=== PATIENT | male | born 1960 | race African-American/Black ===

== ENCOUNTER → 2016-07-24 | Outpatient (CLI) | payer OTHER ==
[~2016-07-24] MED LIST: AMLODIPINE BESYL5 MG PO; BUMEX1 MG PO; COREG PO; CRESTOR PO; FLEXERIL PO; GABAPENTIN300 MG PO; HCTZ PO; HYDROCHLOROTHIA25 MG PO; HYDROCODON-ACE1 EAC4 PO; KETOPROFEN PO; LISINOPRIL PO; LISINOPRIL5 MG PO; LORTAB 10/500 T1 TAB PO; MEVACOR PO; NIACIN PO; NORVASC PO; OXYCODON HCL-1 UDTA1 PO; PRAVASTATIN SOD40 MG PO; PROMETHAZINE12.5 MG PO; RANITIDINE HCL150 M1 PO; VITAMIN D250000 UNIT PO
[2016-07-24 12:44] LABS: HEMATOCRIT 44.5 % (38.0-50.0); HEMOGLOBIN 14.6 gm/dL (13.0-16.0); MEAN CELL VOLUME 92.5 FL (83-96); MEAN CORPUSCULAR HEMOGLOBIN 30.4 PG (28-34); MEAN CORPUSCULAR HGB CONC 32.8 g/dL (30-36); MEAN PLATELET VOLUME 8.1 FL (6.5-11.5); RED BLOOD COUNT 4.81 X10e (3.90-5.60); RED CELL DISTRIBUTION WIDTH 13.8 % (11.0-15.5); WHITE BLOOD COUNT 7.6 X10e3 (4.0-10.5)
[2016-07-24 14:01] LABS: BLOOD UREA NITROGEN 24 mg/dL (9-23); BUN/CREATININE RATIO 17.14; CALCIUM SERUM 9.6 mg/dL (8.4-10.2); CARBON DIOXIDE 26 mmol/L (22-31); CHLORIDE 108 mmol/L (100-111); CREATININE SERUM 1.4 mg/dL (0.6-1.4); GLOM FILT RATE Estimated ABOVE60 mL/min (>60); GLUCOSE FASTING 95 mg/dL (70-110); POTASSIUM 4.3 mmol/L (3.5-5.1); SODIUM 142 mmol/L (135-145)
== END | disposition home or self-care (01) ==
LOC: CLAB 12:10
PROVIDERS: Internal Medicine Cardiovascular Disease
DX: I50.9 Heart failure, unspecified (principal)
CPT/HCPCS: 36415; 80048; 85027

== ENCOUNTER 2016-08-12 06:49 | Inpatient (IN) | payer OTHER ==
--- NOTE | ~2016-08-12 | PN ---
Unit #: [id number] #: [id number] Patient: HIRO MARIE JR [id number] [facility] [address] [place] [address] [id number] I MR#: [id number] NAME: HIRO MARIE JR ROOM: [facility] Age: 56 Sex: M Admission Date: 08/12/2016 : 1960 Attending Physician: Bertha Lambert M.D. Admitting Physician: Bertha Lambert M.D. Primary Care Physician: Primary Care Physician Paige MERCER PROGRESS NOTES DATE 08/22/2016 DISCUSSION Mr. Marie is a 56-year-old male who was seen today and chart was reviewed and case was discussed with the staff. He has been anxious, withdrawn though has not shown any agitation, irritability or behavioral problems and has been cooperative with treatment recommendations and has been taking medications and tolerating them fairly well with no reported side effects. MENTAL STATUS EXAMINATION Middle-aged male who was casually dressed with fair personal hygiene and appears to be in no acute distress or discomfort. He was awake and alert on interaction with intact orientation. His mood was anxious and depressed with congruent affect. His speech is slow and goal-directed. He denies any suicidal or homicidal ideations and also denies any auditory or visual hallucinations. His insight and judgement remains slightly impaired. TREATMENT PLAN 1. Will continue him on his current medications and treatment protocol and will monitor his response to the medications and make further adjustments as needed. 2. Will continue to follow up. Dictated by... Waleska Salgado/wei TD: 08/25/2016 09:08 JOB #: [id number] Unit #: [id number] #: [id number] Patient: HIRO MARIE JR [facility] PROGRESS NOTES Page 1 of 1 X Bertha Lambert MD PROGRESS NOTE
--- NOTE | ~2016-08-12 | PN ---
Unit #: [id number] #: [id number] Patient: HIRO MARIE JR [id number] [facility] [address] [place] [address] [id number] I MR#: [id number] NAME: HIRO MARIE JR ROOM: P265 Age: 56 Sex: M Admission Date: 08/12/2016 : 1960 Attending Physician: Bertha Lambert M.D. Admitting Physician: Bertha Lambert M.D. Primary Care Physician: Primary Care Physician Paige MERCER PROGRESS NOTES DATE 08/16/2016 DISCUSSION Mr. Marie is a 56-year-old, male who was seen today and chart was reviewed and case was discussed with the staff. He has been anxious, withdrawn though has not shown any agitation, irritability or behavioral problems and has been cooperative with treatment recommendations though still has been exhibiting some persistent depressive symptoms. MENTAL STATUS EXAM Middle-aged male who was casually dressed with a fair personal hygiene appears to be in no acute distress or discomfort. He was awake and alert with (:34) anxious with congruent affect. His speech was slow and restricted in content. His thought processes were disorganized with some looseness of associations. His insight and judgement remains significantly impaired. TREATMENT PLAN 1. We will continue him on his current medications and treatment protocol. We will monitor his response to the medication and make further adjustments as needed. 2. We will continue to follow up. Dictated by... Waleska Salgado/maryjane TD: 08/18/2016 02:42 JOB #: [id number] Unit #: [id number] #: [id number] Patient: HIRO MARIE JR [facility] PROGRESS NOTES Page 1 of 1 X Bertha Lambert MD PROGRESS NOTE
--- NOTE | ~2016-08-12 | PN ---
Unit #: [id number] #: [id number] Patient: HIRO MARIE JR [id number] [facility] [address] [place] [address] [id number] MR#: [id number] NAME: HIRO MARIE JR ROOM: [facility] Age: 56 Sex: M Admission Date: 08/12/2016 : 1960 Attending Physician: Bertha Lambert M.D. Admitting Physician: Bertha Lambert M.D. Primary Care Physician: Primary Care Physician Paige MERCER PROGRESS NOTES DATE 08/21/2016 DISCUSSION Mr. Marie is a 56-year-old, male who was seen today and chart was reviewed and case was discussed with the staff. He remains anxious, withdrawn, depressed and rather seclusive to himself. Meanwhile, he has been taking the medications and tolerating them fairly well with no reported side effects. MENTAL STATUS EXAM Middle-aged male who was casually dressed with fair personal hygiene, appears to be in no acute distress or discomfort. He was awake and alert on interaction with intact orientation. His mood was anxious and depressed with congruent affect. His speech was slow and goal directed. He denies any suicidal or homicidal ideation. Also, denies any auditory or visual hallucinations. His insight and judgement remains slightly impaired. TREATMENT PLAN 1. We will continue him on his current treatment protocol. We will monitor his response to the medications and make further adjustments as needed. 2. We will continue to follow up. Dictated by... Waleska Salgado/maryjane TD: 08/24/2016 22:51 JOB #: [id number] Unit #: [id number] #: [id number] Patient: HIRO MARIE JR [facility] PROGRESS NOTES Page 1 of 1 X Bertha Lambert MD PROGRESS NOTE
--- NOTE | ~2016-08-12 | PN ---
Unit #: [id number] #: [id number] Patient: HIRO MARIE JR [id number] [facility] [address] [place] [address] [id number] I MR#: [id number] NAME: HIRO MARIE JR ROOM: [facility] Age: 56 Sex: M Admission Date: 08/12/2016 : 1960 Attending Physician: Bertha Lambert M.D. Admitting Physician: Bertha Lambert M.D. Primary Care Physician: Primary Care Physician Paige MERCER PROGRESS NOTES DATE 08/15/2016 DISCUSSION Mr. Marie is a 56-year-old male who was seen today and chart was reviewed and case was discussed with the staff. He has been anxious, withdrawn though has not shown any agitation, irritability and has been cooperative with treatment recommendations and has been taking medications and tolerating them fairly well with no reported side effects. MENTAL STATUS EXAMINATION Middle-aged male who was casually dressed with fair personal hygiene and appears to be in no acute distress or discomfort. He was awake and alert with impaired attention and concentration. His mood was anxious with congruent affect. His speech is slow and restricted in content. His thought processes were disorganized with some looseness of associations. Her insight and judgement remain slightly impaired. TREATMENT PLAN 1. Will continue on his current medications and treatment protocol. Will monitor his response to the medications and make further adjustments as needed. 2. Will continue to follow up. Dictated by... Waleska Salgado/wei TD: 08/15/2016 23:19 JOB #: [id number] Unit #: [id number] #: [id number] Patient: HIRO MARIE JR [facility] PROGRESS NOTES Page 1 of 1 X Bertha Lambert MD PROGRESS NOTE
--- NOTE | ~2016-08-12 | PN ---
Unit #: [id number] #: [id number] Patient: HIRO MARIE JR [id number] [facility] [address] [place] [address] [id number] I MR#: [id number] NAME: HIRO MARIE JR ROOM: [facility] Age: 56 Sex: M Admission Date: 08/12/2016 : 1960 Attending Physician: Bertha Lambert M.D. Admitting Physician: Bertha Lambert M.D. Primary Care Physician: Primary Care Physician Paige MERCER PROGRESS NOTES DATE 08/18/2016 DISCUSSION Mr. Marie is a 56-year-old male who was seen today and chart was reviewed and case was discussed with the staff. He has been anxious, withdrawn, depressed and rather seclusive to himself. Meanwhile, he has been cooperative with treatment recommendations and has been taking medications and tolerating them fairly well. MENTAL STATUS EXAMINATION Middle-aged male who was casually dressed with fair personal hygiene and appears to be in no acute distress or discomfort. He was awake and alert on interaction with intact orientation. His mood was anxious and depressed with congruent affect. His speech is slow and goal-directed. He denies any suicidal or homicidal ideation. His insight and judgement remains slightly impaired. TREATMENT PLAN 1. Will continue his current medications and treatment. his response to the medications and make further adjustments as needed. 2. Will continue to follow up. Dictated by... Waleska Salgado/wei TD: 08/19/2016 22:39 JOB #: [id number] Unit #: [id number] #: [id number] Patient: HIRO MARIE JR [facility] PROGRESS NOTES Page 1 of 1 X Bertha Lambert MD X PROGRESS NOTE
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
--- NOTE | ~2016-08-12 | PA ---
Unit #: [id number] #: [id number] Patient: HIRO MARIE JR [id number] [facility] [address] [place] [address] [id number] I MR#: [id number] NAME: HIRO MARIE JR ROOM: P265 Age: 56 Sex: M Admission Date: 08/12/2016 : 1960 Date of Assessment: Attending Physician: Bertha Lambert M.D. Admitting Physician: Bertha Lambert M.D. Primary Care Physician: Primary Care Physician No PSYCHIATRIC ASSESSMENT DATE OF SERVICE 08/12/2016. IDENTIFYING DATA Mr. Marie is a 56-year-old male, who is a resident of [place], [place], and was self-referred to the hospital on a voluntary basis. CHIEF COMPLAINT "I'm not feeling safe, I'm having thoughts of hurting myself." HISTORY OF PRESENT ILLNESS Mr. Marie is a 56-year-old male with a new history of mood disorder, who was self-referred to the hospital reporting increasing depression and suicidal ideation, that he has been living in a boarding house that has lots of drug dealing going on around it and the patient stated he left the home due to the increase of negative behavior going on and reports that he has been decompensating and has not been eating and sleeping good and has lost weight and reports feelings of hopelessness and helplessness, poor social support system, anhedonia, and suicidal ideations with intent and plan and was seen to be a significant danger to self and others and as such, recommendation for inpatient level of care was made and the patient was transferred to us. SUBSTANCE ABUSE HISTORY The patient reports history of cannabis and cocaine abuse in the distant past, but denies any current drug abuse with the exception of cocaine which he keeps on using it by snorting and reports his last use was yesterday. However, it appears that he had a rough day yesterday. He stated that he was clean and then he ended up using cannabis and cocaine yesterday. PAST PSYCHIATRIC HISTORY The patient has had history of psychiatric treatment at [facility] in the past and has been diagnosed and treated for substance abuse and mood disorder, though currently he is not active in any treatment program, is not seeing a psychiatrist, and is not taking any psychotropic medications. PAST MEDICAL HISTORY Hypertension, chronic pain, obesity, diabetes mellitus. ALLERGIES Unit #: [id number] #: [id number] Patient: HIRO MARIE JR No known medication allergies. PERSONAL AND SOCIAL HISTORY A 56-year-old male, who reports that he is , single, disabled, unemployed, and describes himself to be homeless as he reports that he has been living in a boarding house, but did not like the environment there and now does not have any stable place to go. MENTAL STATUS EXAMINATION Middle-aged male who was casually dressed with fair personal hygiene, appears to be in no acute distress or discomfort. He was awake and alert on interaction with intact orientation to time, place, and person. His mood was anxious and depressed with a congruent affect. His speech was slow and restricted in content. His thought processes were disorganized with some looseness of associations and suicidal ideations. His insight and judgment remain significantly impaired. DIAGNOSTIC IMPRESSION Psychiatric: Major depressive disorder, recurrent, moderate, without psychotic features; cocaine dependence, moderate. Medical: Hypertension, chronic pain, obesity, diabetes mellitus. Stressors: Moderate psychosocial stressors. TREATMENT PLAN 1. The patient has presented with history of mood disorder and substance abuse and has been decompensating and will need inpatient hospitalization for safety and stabilization. We will start him back on his home medications. We will adjust the medications and monitor response. 2. Supportive therapy was provided to the patient. ESTIMATED LENGTH OF STAY 5 to 7 days. ABILITY TO HELP SELF Limited. WILLINGNESS TO HELP SELF The patient appears to be willing to help self. STRENGTHS 1. Communicative. 2. Cooperative. PROBLEMS 1. Chronic dysphoric symptoms. 2. Poor social support system. DISCHARGE CRITERIA This will be contingent upon the patient's ability to show resolution of his depression and anxiety and his ability to stay safe to himself, particularly after discharge from the hospital. Dictated by... Bertha Lambert M.D. IAA/modl Unit #: [id number] #: [id number] Patient: HIRO MARIE JR TD: 08/13/2016 07:40 JOB #: [id number] PSYCHIATRIC ASSESSMENT Page 1 of 1 X Bertha Lambert MD PSYCHIATRIC ASSESSMENT
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
--- NOTE | ~2016-08-12 | PN ---
Unit #: [id number] #: [id number] Patient: HIRO MARIE JR [id number] [facility] [address] [place] [address] [id number] MR#: [id number] NAME: HIRO MARIE JR ROOM: P265 Age: 56 Sex: M Admission Date: 08/12/2016 : 1960 Attending Physician: Bertha Lambert M.D. Admitting Physician: Bertha Lambert M.D. Primary Care Physician: Paige Primary Care Physician [facility] PROGRESS NOTES DATE August 20, 2016 DISCUSSION Mr. Marie is a 56-year-old, -[place] male who was seen today and chart was reviewed. His case was discussed with the staff. He has been anxious, withdrawn, depressed, and rather seclusive to himself. Meanwhile, he has been voicing feelings of hopelessness, helpless, and suicidal thoughts. MENTAL STATUS EXAMINATION Middle age, -[place] male who was casually dressed with a fair personal hygiene and appears to be in no acute distress or discomfort. He was awake and alert with impaired attention and concentration. His mood is anxious and depressed with a congruent affect. Speech is slow and restricted in content. Thought processes are disorganized with some looseness of association. His insight and judgement remain significantly impaired. TREATMENT PLAN 1. We will continue on his current medications and treatment protocol. Will monitor his response to the medications and make further adjustments as needed. 2. We will continue to follow up. Dictated by... Waleska Salgado/juice TD: 08/22/2016 09:18 JOB #: [id number] Unit #: [id number] #: [id number] Patient: HIRO MARIE JR [facility] PROGRESS NOTES Page 1 of 1 X Bertha Lambert MD X PROGRESS NOTE
--- NOTE | ~2016-08-12 | A ---
[facility] Nutrition Therapy DATE: 08/22/16 Patient: HIRO BOSS JR Physician: AFAIRF Address: [address] Room/Bed: [address], Zip: [place] [address] Admit Date: 08/12/16 Date of : 58 Height: 6 2 Weight: 372 [phone] NUTRITIONAL ASSESSMENT: REASON: LOS Admitting Dx: 56 y/o male admitted with depression and SI, vague HI PMH: Morbid obesity, HTN, DM, HLD, opioid abuse, marijuana and cocaine use Anthropometrics: Ht: 74", Wt: 373 lbs, BMI: 47 (Stage III obese), past weights: 257-315 lbs Labs: WNL, no glucose POC/A1C/lipid panel Meds: Lipitor, Bumetanide, Entresto, Milk of Mg, Mag-al Assessment: Chart reviewed, events noted. H&P and progress notes reviewed, see admitting dx and PMH. Patient is Stage III obese, on regular diet, has hx of DM but glucose was WNL on admission, no A1C lab drawn, no Accucheks. Although the patient reported a poor appetite and general weight loss (amount/time frame not specified) in needs assessment, his past weights actually reflect a weight gain and is he morbidly obese. Appetite has been consistently good since admission and he is receiving large portion entree with lunch/dinner, which he is not appropriate for based on his BMI, however I will not change since he has been receiving larger portions since admission. He is on disability and has been living at a boarding house. See RD recs below. Dx: Stage III obese r/t diet/lifestyle/PMH AEB BMI 47. Intervention: None at this time Monitoring, Evaluation and Goals: Gradual weight loss towards a healthy BMI range Recommendations: 1. Consider changing diet to healthy heart due to PMH and to promote a gradual weight gain towards a healthy BMI range. 2. Suggest checking A1C lab and lipid panel due to PMH. If A1C is elevated suggest adding consistent carb restriction. 3. Promote weight loss. [facility] Nutrition Therapy DATE: 08/22/16 Patient: HIRO BOSS JR Physician: AFAIRF Address: [address] Room/Bed: [facility], Zip: [place] [address] Admit Date: 08/12/16 Date of : 58 Height: 6 2 Weight: 372 [phone] 4. Please consult RD with any further nutritional needs. Not at nutritional risk Respectfully, Bettie Kruse RD, LD [facility] cc: client file
--- NOTE | ~2016-08-12 | PN ---
Unit #: [id number] #: [id number] Patient: HIRO MARIE JR [id number] [facility] [address] [place] [address] [id number] MR#: [id number] NAME: HIRO MARIE JR ROOM: [facility] Age: 56 Sex: M Admission Date: 08/12/2016 : 1960 Attending Physician: Bertha Lambert M.D. Admitting Physician: Bertha Lambert M.D. Primary Care Physician: Primary Care Physician Paige MERCER PROGRESS NOTES DATE OF SERVICE 08/19/2016 DISCUSSION Mr. Marie is a 56-year-old male who was seen today. Chart was reviewed and case was discussed with the staff. He has been anxious, withdrawn, and rather seclusive to himself. Meanwhile, he has been cooperative with treatment recommendations and has been taking the medications and tolerating them fairly well with no reported side effects. MENTAL STATUS EXAMINATION Middle-aged male who is casually dressed with fair personal hygiene, appears to be in no acute distress or discomfort. He was awake and alert on interaction with intact orientation. His mood is anxious with congruent affect. He reports having suicidal ideations as well as vague homicidal ideations. His insight and judgment remain slightly impaired. TREATMENT PLAN 1. We will continue him on his current medications and treatment protocol. We will monitor his response to the medications and make further adjustments as needed. 2. We will continue to follow up. Dictated by... Bertha Lambert M.D. IAA/gildag TD: 08/20/2016 14:24 JOB #: [id number] Unit #: [id number] #: [id number] Patient: HIRO MARIE JR [facility] PROGRESS NOTES Page 1 of 1 X Bertha Lambert MD X PROGRESS NOTE
--- NOTE | ~2016-08-12 | CO ---
Unit #: [id number] #: [id number] Patient: HIRO BOSS JR [id number] [facility] [address] [place] [address] [id number] I MR#: [id number] NAME: HIRO BOSS JR ROOM: [facility] Age: 56 Sex: M Admission Date: 08/12/2016 : 1960 Attending Physician: Bertha Lambert M.D. Consultation Date: 08/12/2016 CONSULTATION REPORT MAKENZIE Garcia is a 56-year-old with history of arrhythmia and defibrillator placement. The patient was seen for his H and P on 08/12/2016. His medical history was outlined as was and his list of medications was included. Please see H and P dated 08/12/2016. Dictated by... Mayra Porter P.A.-C. for Waleska Beltran/korin TD: 08/15/2016 01:49 JOB #: [id number] CONSULTATION REPORT Page 1 of 1 X Mayra Porter CONSULTATION REPORT
--- NOTE | ~2016-08-12 | PN ---
Unit #: [id number] #: [id number] Patient: HIRO KIRAN JR [id number] [facility] [address] [place] [address] [id number] MR#: [id number] NAME: HIRO KIRAN JR ROOM: P265 Age: 56 Sex: M Admission Date: 08/12/2016 : 1960 Attending Physician: Bertha Lambert M.D. Admitting Physician: Bertha Lambert M.D. Primary Care Physician: Primary Care Physician Paige MERCER PROGRESS NOTES DATE 08/23/2016 DISCUSSION Hiro kiran is a 56-year-old male seen on 08/23/2016. The patient is a 56-year-old male reported that he is feeling very sad depressed. The patient was in the hospital bed in room 265. The patient has been compliant with medication. Vital signs 97.7, 108, 141/96. The patient denied any other complaints. Complete review of systems unremarkable. MENTAL STATUS EXAMINATION General appearance, the patient dressed in hospital moderately obese laying in a hospital bed. Attention span and concentration poor. Oriented to time, place and person. Mood and affect sad, depressed. Speech monotone. Thought process slow. Association the patient denied any thoughts of harming self or others but reported having passive SI. Sad depressed. Recent and remote memory poor. Insight and judgement poor. DIAGNOSES Major depressive disorder recurrent severe Cocaine use moderate History of hypertension Chronic pain Obesity Diabetes ASSESSMENT/PLAN Advise to continue with current medication and therapeutic protocol. If needed consider further adjustment of medication. Dictated by... Waleska Gifford/maryjane TD: 08/26/2016 04:25 JOB #: [id number] Unit #: [id number] #: [id number] Patient: HIRO KIRAN JR [facility] PROGRESS NOTES Page 1 of 1 X Edmar Heller MD PROGRESS NOTE
--- NOTE | ~2016-08-12 | HP ---
Unit #: [id number] #: [id number] Patient: HIRO BOSS JR [id number] [facility] [address] [place] [address] [id number] I MR#: [id number] NAME: HIRO BOSS JR ROOM: P265 Age: 56 Sex: M Admission Date: 08/12/2016 : 1960 Attending Physician: Bertha Lambert M.D. Admitting Physician: Bertha Lambert M.D. Primary Care Physician: Primary Care Physician No HISTORY AND PHYSICAL HISTORY OF PRESENT ILLNESS Hiro is a 56 year old admitted to [facility] with depression and verbalizing wanting to hurt himself. PAST MEDICAL HISTORY 1. Morbid obesity. 2. High blood pressure. 3. Diabetes mellitus. 4. Hyperlipidemia. 5. History of arrhythmia. a. Defibrillator. PAST SURGICAL HISTORY As above. ALLERGIES No known drug allergies. SOCIAL HISTORY He denies cigarettes and alcohol. Admits to using marijuana and cocaine and has a history of abusing opioids. FAMILY HISTORY Medically noncontributory. REVIEW OF SYSTEMS CONSTITUTIONAL: No fever or chills. HEENT: Denies any sore throat, ear pain or runny nose. CARDIOVASCULAR: Denies chest pain, irregular heart rhythm or palpitations. CHEST: Denies shortness of breath or cough. No hemoptysis. GASTROINTESTINAL: Denies nausea, vomiting, diarrhea or chronic constipation. ENDOCRINE: Denies history of increased thirst or urination. No recent significant weight loss or gain. GENITOURINARY: Denies dysuria, frequency, or hematuria. SKIN: Denies any rashes. HEMATOLOGIC: Denies history of increased bleeding or bruising. MUSCULOSKELETAL: Denies any hot, swollen joints. No generalized muscle pain. NEUROLOGIC: Denies problems with vision or speech. No frequent, severe headaches. No numbness, tingling or weakness in any extremities. Denies loss of bladder or bowel control. Unit #: [id number] #: [id number] Patient: HIRO BOSS JR CURRENT MEDICATIONS 1. Entresto one b.i.d. 2. Toprol XL 50 mg daily. 3. KCL 10 mEq daily. 4. Bumex 0.5 mg q.a.m. 5. Aspirin 81 mg daily. 6. Lipitor 40 mg q.h.s. 7. Neurontin 300 mg t.i.d. 8. Milk of Magnesia p.r.n. 9. Maalox p.r.n. 10. Tylenol p.r.n. PHYSICAL EXAMINATION GENERAL: Alert, morbidly obese, sitting in a wheelchair, no apparent distress. VITAL SIGNS: Blood pressure 144/92, heart rate 84, respirations 16, temperature 98.6. WEIGHT: 373. HEIGHT: 6 feet 2 inches. SKIN: Warm and dry without rash or lesion. HEENT: Normocephalic. TMs not viewed. Oral and nasal passages clear. Conjunctivae clear. PERRLA. EOMs intact. NECK: Supple without lymphadenopathy or thyromegaly. HEART: Rate and rhythm is regular with a 3/6 systolic murmur. LUNGS: Clear. ABDOMEN: Soft, nontender. : Not done. EXTREMITIES: No evidence of cyanosis or clubbing. He has 2 to 3+ edema up to his knees. Skin is intact. NEUROLOGICAL: Grossly within normal limits. Cranial Nerves: II: Visual lorenz are intact. III, IV AND : Extraocular movements are intact. Pupils are equal, round and reactive to light. V: Facial sensation is grossly normal. VII: Facial movements and expression are normal. VIII: Auditory acuity grossly intact. IX, X: Uvula is midline. Phonation is normal. XI: Patient shrugs shoulders and turns head normally. XII: Tongue protrudes in the midline. Sensory and Motor Function: Sensory and motor sensation is grossly normal. Motor: moves all extremities well. Coordination: Gait is normal. Deep Tendon Reflexes: Intact. IMPRESSION Psychiatric admission. RECOMMENDATIONS PSYCHIATRIC: Per psychiatrist. MEDICAL: 1. See no contraindications to participate in facility's activities. 2. Continue Toprol, KCL, Bumex, aspirin and Lipitor. Will need further consideration on continuing Entresto given his history of diabetes mellitus. MEDICAL PROGNOSIS Good. MEDICAL CONDITION Stable. Unit #: [id number] #: [id number] Patient: HIRO BOSS JR Dictated by... Mayra Porter P.A.-C. for Waleska Beltran/wei TD: 08/12/2016 20:12 JOB #: [id number] HISTORY AND PHYSICAL Page 1 of 1 X Mayra Porter HISTORY AND PHYSICAL
--- NOTE | ~2016-08-12 | PN ---
Unit #: [id number] #: [id number] Patient: HIRO MARIE JR [id number] [facility] [address] [place] [address] [id number] I MR#: [id number] NAME: HIRO MARIE JR ROOM: 65 Age: 56 Sex: M Admission Date: 08/12/2016 : 1960 Attending Physician: Bertha Lambert M.D. Admitting Physician: Bertha Lambert M.D. Primary Care Physician: Primary Care Physician Paige KELLY NOTES DATE August 14, 2016 DISCUSSION Mr. Maire is a 56-year-old male, who was seen today and chart was reviewed and the case was discussed with the staff. He remains anxious, withdrawn, and rather seclusive to himself and has been reporting persistent depression and anxiety, and feelings of hopelessness, and helplessness, and suicidal ideations. He has been taking the medications and tolerating them fairly well with no reported side effects. MENTAL STATUS EXAMINATION Middle-aged male, who was casually dressed with fair personal hygiene and appears to be in no acute distress or discomfort. He was awake and alert with impaired attention and concentration. His mood is anxious with a congruent affect. His speech is slow and restricted in content. He reports having suicidal ideations and denies any homicidal ideations, and also denies any auditory or visual hallucinations. His insight and judgment remain slightly impaired. TREATMENT PLAN 1. We will continue him on his current medications and treatment protocol, and will monitor his response, and make further adjustments as needed. 2. We will continue to followup. Dictated by... Waleska Salgado/mansoor TD: 08/15/2016 05:33 JOB #: [id number] Unit #: [id number] #: [id number] Patient: HIRO MARIE JR SYLVIE PROGRESS NOTES Page 1 of 1 X Bertha Lambert MD PROGRESS NOTE
--- NOTE | ~2016-08-12 | PN ---
Unit #: [id number] #: [id number] Patient: HIRO MARIE JR [id number] [facility] [address] [place] [address] [id number] I MR#: [id number] NAME: HIRO MARIE JR ROOM: P265 Age: 56 Sex: M Admission Date: 08/12/2016 : 1960 Attending Physician: Bertha Lambert M.D. Admitting Physician: Bertha Lambert M.D. Primary Care Physician: Primary Care Physician Paige MERCER PROGRESS NOTES DATE 08/13/2016 DISCUSSION Mr. Marie is a 56-year-old male who was seen today and chart was reviewed and case was discussed with the staff. He has been anxious, withdrawn, depressed and rather seclusive to himself. Meanwhile, he has been taking medications and tolerating them fairly well though has been endorsing some persistent depressive symptoms. MENTAL STATUS EXAMINATION Middle-aged male who was casually dressed with fair personal hygiene and appears to be in no acute distress or discomfort. He was awake and alert with intact orientation. His mood was anxious and depressed with congruent affect. Her speech is slow and restricted in content. His thought processes were disorganized with some looseness of association. His insight and judgement remains significantly impaired. TREATMENT PLAN 1. Will continue his current medications and treatment protocol. Will monitor his response to the medications and make further adjustments as needed. 2. Will continue to follow up. Dictated by... Waleska Salgado/wei TD: 08/13/2016 22:54 JOB #: [id number] Unit #: [id number] #: [id number] Patient: HIRO MARIE JR SYLVIE PROGRESS NOTES Page 1 of 1 X Bertha Lambert MD PROGRESS NOTE
[2016-08-13 09:31] LABS: BASOPHIL% 0.8 % (0-2.5); EOSINOPHIL# 0.3 X10e3 (0-0.7); EOSINOPHIL% 6.2 % (0.0-7.0); HEMATOCRIT 45.7 % (38.0-50.0); HEMOGLOBIN 14.7 gm/dL (13.0-16.0); LYMPHOCYTE# 1.5 X10e3 (1.0-3.5); LYMPHOCYTE% 32.4 % (17.0-45.0); MEAN CELL VOLUME 94.2 FL (83-96); MEAN CORPUSCULAR HEMOGLOBIN 30.2 PG (28-34); MEAN CORPUSCULAR HGB CONC 32.1 g/dL (30-36); MEAN PLATELET VOLUME 8.6 FL (6.5-11.5); MONOCYTE# 0.6 X10e3 (0-1.0); MONOCYTE% 12.3 % (3.0-12.0); NEUTROPHIL# 2.2 X10e3 (1.5-7.1); NEUTROPHIL% 48.3 % (40-75); PLATELET COUNT 212 X10e3 (140-420); RED BLOOD COUNT 4.85 X10e (3.90-5.60); RED CELL DISTRIBUTION WIDTH 14.2 % (11.0-15.5); WHITE BLOOD COUNT 4.6 X10e3 (4.0-10.5)
[2016-08-13 09:45] LABS: DIFF IND NO
[2016-08-13 10:01] LABS: THYROID STIMULATING HORMONE 0.35 uIU/ml (0.34-5.60)
[2016-08-13 10:08] LABS: FREE THYROXIN (T4) 0.72 ng/dL (0.58-1.64)
[2016-08-13 10:10] LABS: ALBUMIN SERUM 3.5 g/dL (3.5-5.0); BILIRUBIN,TOTAL 0.3 mg/dL (0.2-2.0); BUN/CREATININE RATIO 12.5; CREATININE SERUM 1.2 mg/dL (0.6-1.4); GLOM FILT RATE Estimated 77.4 mL/min (>60); POTASSIUM 4.7 mmol/L (3.5-5.1); PROTEIN TOTAL SERUM 6.7 g/dL (6.0-8.3)
[2016-08-15 09:45] LABS: URINE APPEARANCE CLEAR; URINE BILIRUBIN NEG (NEG); URINE BLOOD NEG (NEG); URINE COLOR YELLOW; URINE GLUCOSE NEG (NEG); URINE KETONE NEG (NEG); URINE LEUKOCYTE ESTERASE NEG (NEG); URINE NITRATE NEG (NEG); URINE PROTEIN NEG (NEG); URINE SPECIFIC GRAVITY 1.008 (1.003-1.035); URINE UROBILINOGEN 0.2 MG/DL (NEG)
[2016-08-15 10:09] LABS: AMPHETAMINE NEG (NEG); BARBITURATES NEG (NEG); BENZODIAZEPINES NEG (NEG); COCAINE POS (NEG); MARIJUANA NEG (NEG); OPIATES NEG (NEG); TRICYCLIC ANTIDEPRESSANTS NEG (NEG); U METHADONE NEG (NEG)
== END 2016-08-25 07:50 | disposition home or self-care (01) | DRG 885 ==
LOC: P2L 06:49
PROVIDERS: Psychiatry & Neurology Psychiatry
DX: F33.1 Major depressive disorder, recurrent, moderate (principal); F14.20 Cocaine dependence, uncomplicated; R45.851 Suicidal ideations; I10 Essential (primary) hypertension; G89.29 Other chronic pain; E11.9 Type 2 diabetes mellitus without complications; F41.9 Anxiety disorder, unspecified; Z95.810 Presence of automatic (implantable) cardiac defibrillator; F33.2 Major depressive disorder, recurrent severe without psychotic features; E66.9 Obesity, unspecified
CPT/HCPCS: 80053; 80307; 81003; 84439; 84443; 85025

== ENCOUNTER 2016-08-26 22:35 | Emergency (ER) | payer OTHER ==
[2016-08-26 23:10] LABS: BASOPHIL% 0.7 % (0-2.5); EOSINOPHIL# 0.2 X10e3 (0-0.7); EOSINOPHIL% 2.9 % (0.0-7.0); HEMATOCRIT 44.1 % (38.0-50.0); HEMOGLOBIN 14.2 gm/dL (13.0-16.0); LYMPHOCYTE# 1.7 X10e3 (1.0-3.5); LYMPHOCYTE% 25.4 % (17.0-45.0); MEAN CELL VOLUME 93.9 FL (83-96); MEAN CORPUSCULAR HEMOGLOBIN 30.3 PG (28-34); MEAN CORPUSCULAR HGB CONC 32.2 g/dL (30-36); MEAN PLATELET VOLUME 8.5 FL (6.5-11.5); MONOCYTE# 0.5 X10e3 (0-1.0); MONOCYTE% 8.2 % (3.0-12.0); NEUTROPHIL# 4.1 X10e3 (1.5-7.1); NEUTROPHIL% 62.8 % (40-75); PLATELET COUNT 206 X10e3 (140-420); RED CELL DISTRIBUTION WIDTH 13.7 % (11.0-15.5); WHITE BLOOD COUNT 6.6 X10e3 (4.0-10.5)
[2016-08-26 23:13] LABS: DIFF IND NO
[2016-08-26 23:30] LABS: BLOOD UREA NITROGEN 22 mg/dL (9-23); BUN/CREATININE RATIO 16.92; CALCIUM SERUM 9.4 mg/dL (8.4-10.2); CARBON DIOXIDE 22 mmol/L (22-31); CHLORIDE 108 mmol/L (100-111); CREATININE SERUM 1.3 mg/dL (0.6-1.4); GLOM FILT RATE Estimated 70.2 mL/min (>60); GLUCOSE FASTING 148 mg/dL (70-110); POTASSIUM 3.5 mmol/L (3.5-5.1); SODIUM 140 mmol/L (135-145)
[2016-08-26 23:32] LABS: ALCOHOL BLOOD <5 mg/dL (0)
[2016-08-26 23:58] LABS: AMPHETAMINE NEG (NEG); BARBITURATES NEG (NEG); BENZODIAZEPINES NEG (NEG); COCAINE POS (NEG); MARIJUANA NEG (NEG); OPIATES NEG (NEG); TRICYCLIC ANTIDEPRESSANTS NEG (NEG); U METHADONE NEG (NEG)
== END 2016-08-27 02:03 ==
LOC: CFTX 22:35
PROVIDERS: Emergency Medicine
DX: F32.9 Major depressive disorder, single episode, unspecified (principal); I10 Essential (primary) hypertension; F17.200 Nicotine dependence, unspecified, uncomplicated
CPT/HCPCS: 80048; 80307; 85025; 99283; G0480

== ENCOUNTER 2016-08-27 02:47 | Inpatient (IN) | payer OTHER ==
--- NOTE | ~2016-08-27 | HP ---
Unit #: [id number] #: [id number] Patient: HIRO BOSS JR [id number] [facility] [address] [place] [address] [id number] MR#: [id number] NAME: HIRO BOSS JR ROOM: P265 Age: 56 Sex: M Admission Date: 08/27/2016 : 1960 Attending Physician: Bertha Lambert M.D. Admitting Physician: Bertha Lambert M.D. Primary Care Physician: Hayley Contreras HISTORY AND PHYSICAL Hiro is a 56 year old admitted to [address] [place] [address] with depression and verbalizing wanting to hurt himself. He was just discharged from this facility after being admitted on 08/12/16 for the same. Patient was seen and H and P dated 08/12/16 was reviewed. This is current. No changes. Please see H and P dated 08/12/16. Dictated by... Kenzie IngramAJovany. for Waleska Beltran/wei TD: 08/27/2016 20:23 JOB #: [id number] HISTORY AND PHYSICAL Page 1 of 1 X Mayra Porter HISTORY AND PHYSICAL
--- NOTE | ~2016-08-27 | DS ---
Unit #: [id number] #: [id number] Patient: HIRO MARIE JR [id number] [facility] [address] [place] [address] [id number] I MR#: [id number] NAME: HIRO MARIE JR ROOM: 65 Age: 56 Sex: M Admission Date: 08/27/2016 : 1960 Discharge Date: 08/29/2016 Attending Physician: Bertha Lambert M.D. Primary Care Physician: Hayley Contreras DISCHARGE SUMMARY IDENTIFYING DATA Mr. Marie is a 56-year-old disabled, male, who is a resident of [place], [place] and was just discharged from here the day before and was self-referred back to the hospital. DISCHARGE DIAGNOSES Psychiatric: Major depressive disorder, recurrent, moderate, without psychotic features. Medical: Hypertension, diabetes mellitus, neuropathy. Stressors: Moderate psychosocial stressors. HISTORY OF PRESENT ILLNESS Please see initial psychiatric evaluation for details. PAST PSYCHIATRIC HISTORY Please see initial psychiatric evaluation for details. PAST MEDICAL HISTORY Please see initial psychiatric evaluation for details. HOSPITAL COURSE The patient was admitted to the adult psychiatric unit at [facility] lukasz Roe and was oriented to the hospital environment. Routine p.r.n. medications were initiated, and was started back on his home medications and medications were adjusted, and he was closely monitored. He was taking the medications regularly and was tolerating them fairly well and was able to show a decent therapeutic response and was willing to continue treatment on an outpatient basis, and as such, it was decided that he will be discharged home and will continue treatment on an outpatient basis. DISCHARGE CONDITION Stable. PROGNOSIS Dictated by... Bertha Lambert M.D. IAA/modl Unit #: [id number] #: [id number] Patient: HIRO MARIE JR TD: 08/29/2016 07:32 JOB #: [id number] DISCHARGE SUMMARY Page 1 of 1 X Bertha Lambert MD X DISCHARGE SUMMARY
--- NOTE | ~2016-08-27 | PA ---
Unit #: [id number] #: [id number] Patient: HIRO MARIE JR [id number] [facility] [address] [place] [address] [id number] I MR#: [id number] NAME: HIRO MARIE JR ROOM: P265 Age: 56 Sex: M Admission Date: 08/27/2016 : 1960 Date of Assessment: 08/27/2016 Attending Physician: Bertha Lambert M.D. Admitting Physician: Bertha Lambert M.D. Primary Care Physician: Hayley Contreras PSYCHIATRIC ASSESSMENT IDENTIFYING DATA Mr. Marie is a 56-year-old, disabled, , male, who is a resident of [place], [place] and is known to us from previous encounter, was just discharged from my care a couple of days ago and brought himself back to the hospital on a voluntary basis. CHIEF COMPLAINT "I want to kill myself." HISTORY OF PRESENT ILLNESS Mr. Marie is a 56-year-old male with a history of depressive disorder and cocaine dependence, who brought himself back to the hospital after leaving the hospital a couple of days ago stating that he wants to kill himself and reports having suicidal ideation with a plan to walk into oncoming traffic and reports that he has not been on medication since he was discharged from [facility] on Thursday even though he was given prescription, he did not get the prescription filled and reports poor social support system outside of the hospital and has no place to stay and inability to follow through with the treatment plan on an outpatient basis and reports feelings of hopelessness and helplessness and increasing agitation, aggression, poor frustration tolerance and suicidal ideations and as such, was seen to be danger to self and therefore recommendation for inpatient level of care for safety and stabilization was made and the patient was transferred to us. SUBSTANCE ABUSE HISTORY The patient reports history of cannabis and cocaine abuse, but denies any current ongoing substance abuse. PAST PSYCHIATRIC HISTORY The patient has had a history of multiple inpatient psychiatric and chemical dependency treatments including being at [facility], at [facility], and [facility] and currently he is supposed to be on Wellbutrin, but has been noncompliant with medications, particularly since being discharged from the hospital. PAST MEDICAL HISTORY Hypertension, diabetes mellitus, neuropathy. The patient is currently in wheelchair. ALLERGIES No known medication allergies. Unit #: [id number] #: [id number] Patient: HIRO MARIE JR PERSONAL AND SOCIAL HISTORY A 56-year-old male, who reports that he is single, unemployed, and homeless and has poor social support system. MENTAL STATUS EXAMINATION Middle-aged male, who was casually dressed with fair personal hygiene, appears to be in no acute distress or discomfort. He was awake and alert on interaction with intact orientation to time, place, and person. His mood was anxious and depressed with a congruent affect. His speech was slow and restricted in content. His thought processes were disorganized with some looseness of associations and suicidal ideations. His insight and judgment remain significantly impaired. DIAGNOSTIC IMPRESSION Psychiatric: Major depressive disorder, recurrent, moderate, without psychotic features. Medical: Hypertension, diabetes mellitus, neuropathy. Stressors: Moderate psychosocial stressors. TREATMENT PLAN 1. The patient has presented with a history of mood disorder and has been decompensating and will need inpatient hospitalization for safety and stabilization. We will start him back on his home medications. We will monitor his response and make further adjustments as needed. 2. Supportive therapy was provided to the patient. ESTIMATED LENGTH OF STAY 5 to 7 days. ABILITY TO HELP SELF Limited. WILLINGNESS TO HELP SELF The patient appears to be willing to help self. STRENGTHS 1. Communicative. 2. Cooperative. PROBLEMS 1. Chronic dysphoric symptoms. 2. Poor social support system. DISCHARGE CRITERIA This will be contingent upon the patient's ability to show resolution of his depression and anxiety and his ability to stay safe to himself, particularly after discharge from the hospital. Dictated by... Waleska Salgado/korin TD: 08/27/2016 07:31 JOB #: [id number] Unit #: [id number] #: [id number] Patient: HIRO MARIE JR PSYCHIATRIC ASSESSMENT Page 1 of 1 X Bertha Lambert MD PSYCHIATRIC ASSESSMENT
--- NOTE | ~2016-08-27 | PN ---
Unit #: [id number] #: [id number] Patient: HIRO MARIE JR [id number] [facility] [address] [place] [address] [id number] MR#: [id number] NAME: HIRO MARIE JR ROOM: P214 Age: 56 Sex: M Admission Date: 08/27/2016 : 1960 Attending Physician: Bertha Lambert M.D. Admitting Physician: Bertha Lambert M.D. Primary Care Physician: Hayley MERCER PROGRESS NOTES DATE 08/24/2016 DISCUSSION Hiro Marie is a 56-year-old male seen on 08/24/2016. The patient interviewed, chart reviewed. Obtained information from nursing staff. The patient was compliant and cooperative. Mood sad, dysphoric, flat affect. The patient was sitting comfortably in a wheelchair. The patient report that he will be leaving tomorrow but still feeling sad, depressed but denied any suicidal or homicidal ideation. Complete review of systems unremarkable. MENTAL STATUS EXAMINATION General appearance, the patient dressed casually moderately obese sitting comfortably in the wheelchair. Attention span and concentration fair. Oriented to place and person. Mood and affect labile. Speech rapid. Thought process circumstantial. The patient denied any thoughts of harming self or others or any psychotic symptoms. Recent and remote memory poor. Insight and judgement poor. DIAGNOSES Mood disorder NOS ASSESSMENT/PLAN Advise to continue with current medication and therapeutic protocol. If needed consider further adjustment of medication. Dictated by... Waleska Gifford/maryjane TD: 08/27/2016 03:45 JOB #: [id number] Unit #: [id number] #: [id number] Patient: HIRO MARIE JR [facility] PROGRESS NOTES Page 1 of 1 X Edmar Heller MD PROGRESS NOTE
--- NOTE | ~2016-08-27 | PN ---
Unit #: [id number] #: [id number] Patient: HIRO MARIE JR [id number] [facility] [address] [place] [address] [id number] MR#: [id number] NAME: HIRO MARIE JR ROOM: 65 Age: 56 Sex: M Admission Date: 08/27/2016 : 1960 Attending Physician: Bertha Lambert M.D. Admitting Physician: Bertha Lambert M.D. Primary Care Physician: Hayley MERCER PROGRESS NOTES DATE August 28, 2016 DISCUSSION Mr. Marie is a 56-year-old male, who was seen today and chart was reviewed and the case was discussed with the staff. He has been anxious, withdrawn, and depressed and rather seclusive to himself. Meanwhile, he has been cooperative with the treatment recommendations and has been taking the medications and tolerating them fairly well with no reported side effects. MENTAL STATUS EXAMINATION Middle-aged male, who was casually dressed with fair personal hygiene and appears to be in no acute distress or discomfort. He was awake and alert on interaction with intact orientation. His mood is anxious and depressed with a congruent affect. He reports having suicidal ideations and denies any homicidal ideations, and also denies any auditory or visual hallucinations. His insight and judgment remain slightly impaired. TREATMENT PLAN 1. We will continue him on his current medications and treatment protocol, and will monitor his response, and make further adjustments as needed. 2. We will continue to followup. Dictated by... Waleska Salgado/mansoor TD: 08/29/2016 05:20 JOB #: [id number] Unit #: [id number] #: [id number] Patient: HIRO MARIE JR [facility] PROGRESS NOTES Page 1 of 1 X Bertha Lambert MD PROGRESS NOTE
== END 2016-08-29 09:00 | disposition home or self-care (01) | DRG 885 ==
LOC: P2S 02:47 → P2L 14:28
DX: F33.1 Major depressive disorder, recurrent, moderate (principal); E11.40 Type 2 diabetes mellitus with diabetic neuropathy, unspecified; R45.851 Suicidal ideations; I10 Essential (primary) hypertension
CPT/HCPCS: 86592

== ENCOUNTER 2017-01-07 11:21 | Emergency (ER) | payer MEDICARE, OTHER ==
[~2017-01-07] VITALS: Ht 188 cm; Wt 161.9 kg
== END 2017-01-07 13:16 | disposition home or self-care (01) ==
LOC: CED 11:21
DX: L03.115 Cellulitis of right lower limb (principal); I10 Essential (primary) hypertension; Z79.899 Other long term (current) drug therapy; Z88.1 Allergy status to other antibiotic agents
CPT/HCPCS: 70491; 71260; 82565; 99283; Q9967

== ENCOUNTER → 2017-01-15 | Outpatient (CLI) | payer MEDICARE, OTHER | END | disposition home or self-care (01) | LOC: CRAD 09:09 | DX: R13.10 Dysphagia, unspecified (principal) | CPT/HCPCS: 74230; 92611; G8996-GN; G8997-GN; G8998-GN ==